=== PATIENT | female | born 1980 | race Caucasian/White ===

== ENCOUNTER → 2023-11-17 13:19 | Outpatient (REF) | payer OTHER, SELFPAY | LOC: HWWDC 13:19 | PROVIDERS: ATTENDING PHYSICIAN Nurse Practitioner Family; FAMILY PHYSICIAN Nurse Practitioner | DX: Z12.31 Encounter for screening mammogram for malignant neoplasm of breast (principal) | CPT/HCPCS: 77063; 77067 ==